=== PATIENT | female | born 1960 | race Caucasian/White ===

== ENCOUNTER → 2021-02-14 | Day surgery (SDC) | payer OTHER ==
[~2021-02-14] VITALS: Ht 170.2 cm; Wt 75.7 kg
[~2021-02-14] MED LIST: CYCLOBENZAPRINE10 MG PO; HCTZ25 MG PO; HYDROXYCHLOROQ200 MG PO; NORCO 5-325 TA1 EACH PO; PERCOCET 5-3251 EACH PO; SYNTHROID125 MCG PO; XANAX0.5 MG PO
[2021-02-14 08:33] LABS: BUN/CREAT RATIO (CALC) 16.4 RATIO; CREATININE 0.73 mg/dL (0.51-0.95); POTASSIUM 4.1 mmol/L (3.5-5.1)
== END | disposition home or self-care (01) ==
LOC: FAS 06:50
PROVIDERS: Anesthesiology
DX: M65.331 Trigger finger, right middle finger (principal); M65.9 Synovitis and tenosynovitis, unspecified
CPT/HCPCS: 36415; 80048; J1100; J2250; J2405; J2704; J3010; J7120